=== PATIENT | female | born 1975 | race Caucasian/White ===

== ENCOUNTER → 2018-01-28 15:07 | Outpatient (CLI) | payer MEDICAID, SELFPAY ==
[2018-01-28 17:30] LABS: Absolute Lymphocyte Count 1.89 X10^3/ul (0.83-4.51); Basophil# 0.02 X10^3/uL; Basophil% 0.4 % (0-1); Eosinophil# 0.11 X10^3/uL; Hematocrit 40.9 % (37-47); Hemoglobin 13.3 g/dl (12.0-15.0); Lymphocyte # 1.89 X10^3/ul (4.0); Lymphocyte % 34.7 % (19-41); Mean Corp Hgb Conc 32.5 g/gl (32-36); Mean Corpuscular Hgb 29.8 pg (27.0-32.0); Mean Corpuscular Volume 91.5 fL (81-99); Mean Platelet Vol. 10.4 fl (6.2-12.0); Monocyte# 0.46 X10^3/uL; Monocyte% 8.5 % (0-10); Neutrophil # 2.95 X10^3/uL (2.7-7.7); Neutrophil % 54.2 % (47-70); Platelet Count 262 K/mm3 (150-450); RBC Distribution Width SD 47.3 fl (35.1-43.9); Red Blood Count 4.47 M/mm3 (4.2-5.4); White Blood Count 5.4 K/mm3 (4.4-11.0)
[2018-01-28 17:39] LABS: POSITIVE COUNT NO; POSITIVE DIFFERENTIAL NO; POSITIVE MORPHOLOGY NO
[2018-01-28 17:51] LABS: ALB/GLOB Ratio 1.1 RATIO (0.9-2.4); AST(SGOT) 14 U/L (15-37); Alanine Aminotransfer ALT/SGPT 26 U/L (13-56); Albumin, Serum 3.8 g/dL (3.2-5.0); Alkaline Phosphatase 60 U/L (45-117); Anion Gap 5 (5-15); BUN 8 mg/dL (7-18); BUN/Creat Ratio 10.5 RATIO (10-20); Calcium,Total 8.8 mg/dL (8.5-10.1); Chloride 108 mmol/L (98-107); Cholesterol 175 mg/dL (200); Creatinine, Serum 0.76 mg/dL (0.55-1.02); EST Glomerular Filtration Rate 88 mL/min (>60); Est Glom Filt Rate - Afr Amer 107 mL/min (>60); Globulin 3.4 g/dL (2.2-4.2); Glucose 82 mg/dL (74-106); High Density Lipoprotein 38 mg/dL; Potassium 4.1 mmol/L (3.5-5.1); Protein, Total 7.2 g/dL (6.4-8.2); Sodium Level 141 mmol/L (136-145); T4 Free Direct 1.04 ng/dL (0.76-1.46); Thyroid Stim Hormone (TSH) 1.91 uIU/mL (0.358-3.74); Triglycerides 148 mg/dL; Very Low Density Lipoprotein 30 mg/dL (5-40)
[2018-01-28 18:12] LABS: Microalbumin,Random Urine < 5.0 mg/L (NO RANGE EST.)
[2018-01-31 10:45] LABS: Anti-Thyroglobulin AB < 1.0 IU/mL (0.0-0.9); Thyroglobulin, Serum Qt. 19.3 ng/mL (1.5-38.5); Thyroid Peroxidase AB 16 IU/mL (0-34)
[2020-04-21 10:44] VITALS: BMI 32.0
== END ==
PROVIDERS: Family Provider Family Medicine; PCP Family Medicine; Visit Provider Family Medicine
DX: E03.9 Hypothyroidism, unspecified (principal); F17.200 Nicotine dependence, unspecified, uncomplicated; E66.9 Obesity, unspecified
CPT/HCPCS: 80053; 80061; 82043; 82570; 84432; 84439; 84443; 85025; 86376; 86800

== ENCOUNTER → 2018-02-07 15:15 | Outpatient (CLI) | payer MEDICAID, SELFPAY ==
--- NOTE | 2018-02-07 15:18 | US_ITS ---
STUDY: THYROID ULTRASOUND REASON FOR EXAM: Female, 42 years old. Enlarged thyroid TECHNIQUE: Transverse and longitudinal ultrasound evaluation of the thyroid was performed with real-time and static gerardo-scale imaging. COMPARISON: None. FINDINGS: RIGHT LOBE: The right lobe of the thyroid gland measures 5.3 x 2.1 x 1.5 cm. There is a homogeneous echotexture. There are no demonstrated solid, cystic or complex lesions. LEFT LOBE: The left lobe of the thyroid gland measures 5.0 x 1.3 x 1.7 cm. There is a homogeneous echotexture. There is a cystic mass with minimal internal echoes in the mid pole measuring 5.1 x 4.0 x 2.9 mm. ISTHMUS: The isthmus measures 3.0 mm. The regional lymph nodes are unremarkable. US/Thyroid IMPRESSION: The thyroid is not significantly enlarged on ultrasound. There is a small nodule in the mid pole of the left lobe measuring 5 mm in largest diameter. The appearance is not suspicious, however a follow-up ultrasound of the thyroid can be obtained in six months to document stability. Electronically Signed: Janet Paige MD at 2:01 EDT Tel Direct: [phone], Service support ,
== END ==
PROVIDERS: Family Provider Family Medicine; PCP Family Medicine; Visit Provider Family Medicine
DX: E01.0 Iodine-deficiency related diffuse (endemic) goiter (principal)
CPT/HCPCS: 76536

== ENCOUNTER → 2018-02-14 11:22 | Outpatient (CLI) | payer MEDICAID, SELFPAY ==
[2018-02-19 03:21] LABS: Testosterone, Free 0.47 ng/dL (0.10-0.85); Testosterone, Total 29 ng/dL (8-48)
[2018-02-19 07:52] LABS: Testosterone, % Free 1.63 % (0.50-2.80)
== END ==
PROVIDERS: Family Provider Family Medicine; PCP Family Medicine; Visit Provider Family Medicine
DX: L65.9 Nonscarring hair loss, unspecified (principal)
CPT/HCPCS: 36415; 84402; 84403

== ENCOUNTER 2018-03-09 07:44 | Day surgery (SDC) | payer OTHER, SELFPAY ==
[2018-03-09] VITALS (8 sets, daily range): BP systolic 97–131; BP diastolic 59–89; PULSE 62–93; RESP 14–18; TEMP 35.6–36.8; O2SAT 97–99; BMI 32.0
--- NOTE | 2018-03-09 07:50 | CT_ITS ---
STUDY: CT ABDOMEN AND PELVIS WITHOUT CONTRAST REASON FOR EXAM: Female, 43 years old. Lower pelvic pain radiating to the right lower quadrant RADIATION DOSAGE (If Supplied By Facility): CTDIvol = ( 10.08 ) mGy, DLP = ( 503.56 ) mGycm TECHNIQUE: Transaxial images were obtained from the dome of the diaphragm to the symphysis pubis without oral contrast, and without intravenous contrast. Sagittal and coronal images were reconstructed. Individualized dose optimization techniques were used for this CT. COMPARISON: None. FINDINGS: The visualized lung bases are unremarkable. The visualized portions of the heart are within normal limits. Normal liver. Normal gallbladder and extrahepatic biliary system. Normal spleen. Normal pancreas. Normal bilateral adrenal glands. Normal right kidney. Normal left kidney. Normal visualized stomach. There are nonspecific fluid-filled small bowel loops. There is no evidence of small bowel obstruction. There is mild fecal retention. There are multiple appendicoliths. There is thickening of the appendix with minimal stranding and its proximal aspect best seen on coronal images 56-58. No free fluid is seen. Normal abdominal aorta. Normal inferior vena cava. Normal retroperitoneum. Normal urinary bladder. Normal abdominal wall. There is narrowing of L4-[address]/Abdomen/Pelvis without Cont IMPRESSION: Thickening of the appendix with appendicoliths and minimal stranding proximally consistent with acute appendicitis. N.B. : The above information has been verbally conveyed by Osbaldo Chung MD to Dr. Jan Milton, Covering Physician, on 03/09/2018 09:49:07 (ET). Electronically Signed: Osbaldo Chung MD at 9:46 EDT Tel , Service support ,
--- NOTE | 2018-03-09 07:52 | ED.VISSUMM ---
- ER Visit Summary Date of Service: 03/09/18 Chief Complaint: Abdominal pain History of Present Illness: The patient is a 43 F who presents with abdominal pain. She states it started about 3 hours ago. She describes sharp pains in her epigastric, suprapubic and right lower quadrant areas. This pain does not radiate. She denies any vomiting but has had nausea. No urinary symptoms. Her last bowel movement with this morning. She denies fevers with this. She tried Tums without any relief. She has no history of any abdominal surgeries. Physical Examination: Vital signs reviewed. HEENT exam unremarkable. Heart is regular rate and rhythm without murmurs. Lungs are clear to auscultation. Abdomen is soft tenderness in the epigastric, suprapubic and right lower quadrants. Extremities reveal no edema. Skin exam normal. Neurologic exam normal. Test Results: Laboratory studies are normal except for glucose of 114. Urinalysis without infection. CT of the abdomen and pelvis reveals acute appendicitis with appendicoliths and stranding Emergency Department Course and Treatment: Patient was given morphine and Zofran for pain control. Her CAT scan does reveal acute appendicitis. I discussed this with Dr. Ferguson as the patient has seen him in the past and he is outbound sales consultant today. Patient will be started on IV Zosyn and he will begin to perform appendectomy Treatment Plan: [] Disposition: Admit for surgery Impression: Acute appendicitis This note was generated with Augure dictation software. It may contain incorrect words, spelling, and punctuation that were not noted in review of the chart prior to signing ED Disposition - Plan for ED Patient: Chief Complaint: Abd Pain Referrals: Ar Damon MD [Primary Care Provider] -
[2018-03-09] MEDS: Morphine 4 MG/ML Syringe IV (08:09)
[2018-03-09] MEDS: Ondansetron 4 MG/2 ML Vial IV (08:09)
[2018-03-09 08:17] LABS: Absolute Lymphocyte Count 2.24 X10^3/ul (0.83-4.51); Absolute Neutrophil Count 6.7 X10^3/uL (2.0-7.7); Basophil# 0.04 X10^3/uL; Basophil% 0.4 % (0-1); Eosinophil# 0.15 X10^3/uL; Eosinophils% 1.5 % (0-5); Hematocrit 40.6 % (37-47); Hemoglobin 13.7 g/dl (12.0-15.0); Lymphocyte # 2.24 X10^3/ul (4.0); Lymphocyte % 22.5 % (19-41); Mean Corp Hgb Conc 33.7 g/gl (32-36); Mean Corpuscular Hgb 30.5 pg (27.0-32.0); Mean Corpuscular Volume 90.4 fL (81-99); Monocyte# 0.77 X10^3/uL; Monocyte% 7.7 % (0-10); Neutrophil # 6.74 X10^3/uL (2.7-7.7); Neutrophil % 67.7 % (47-70); Platelet Count 296 K/mm3 (150-450); RBC Distribution Width CV 13.6 % (11.6-14.6); RBC Distribution Width SD 44.9 fl (35.1-43.9); Red Blood Count 4.49 M/mm3 (4.2-5.4)
[2018-03-09 08:18] LABS: POSITIVE COUNT NO; POSITIVE DIFFERENTIAL NO; POSITIVE MORPHOLOGY NO
[2018-03-09 08:28] LABS: ALB/GLOB Ratio 1.1 RATIO (0.9-2.4); AST(SGOT) 15 U/L (15-37); Alanine Aminotransfer ALT/SGPT 33 U/L (13-56); Albumin, Serum 3.9 g/dL (3.2-5.0); Alkaline Phosphatase 59 U/L (45-117); Anion Gap 6 (5-15); BUN 12 mg/dL (7-18); BUN/Creat Ratio 16.2 RATIO (10-20); Calcium,Total 9.2 mg/dL (8.5-10.1); Chloride 105 mmol/L (98-107); Creatinine, Serum 0.74 mg/dL (0.55-1.02); EST Glomerular Filtration Rate 91 mL/min (>60); Est Glom Filt Rate - Afr Amer 110 mL/min (>60); Estimated Creatinine Clearance 84.65 ml/min; Globulin 3.4 g/dL (2.2-4.2); Glucose 114 mg/dL (74-106); Lipase 103 U/L (73-393); Potassium 3.7 mmol/L (3.5-5.1); Protein, Total 7.3 g/dL (6.4-8.2); Sodium Level 137 mmol/L (136-145)
[2018-03-09 08:36] LABS: Bacteria 0 SEEN /hpf (None Seen); Mucous, Urine 0 SEEN /hpf (<or=2+)
[2018-03-09 08:41] LABS: Color, Urine Yellow (Yellow); Glucose, Dipstick Normal (Normal); Leukocyte Esterase-Dipstick 25 /ul (Negative); Nitrite-Dipstick Negative (Negative); Occult Blood-Urine 50 /ul (Negative); Protein-Dipstick 15 mg/dl (Negative); Specific Gravity, Urine 1.025 (1.002-1.030); Urine Bilirubin Dipstick Negative (Negative); Urine Clarity Clear (Clear); Urine Urobilinogen Normal (Normal)
[2018-03-09 08:43] LABS: Ketone-Dipstick 150 mg/dl (Negative)
[2018-03-09 08:45] LABS: Internal QC Validated? YES +Cl - CLEAR BKGD; Pregnancy, Urine Negative Negative
[2018-03-09 08:49] LABS: Red Blood Cells-Urine 0-5 SEEN /hpf (0-5); Squamous Epithelial Cells - UA 0-5 SEEN /hpf (5-10); White Blood Cells 0-5 SEEN /hpf (0-5)
[2018-03-09] MEDS: HYDROmorphone 1 MG/ML Syringe IV (09:55)
[2018-03-09] MEDS: Piperacil/Tazobactam 3.375 GM/50 ML ML IV (10:13)
--- NOTE | 2018-03-09 10:47 | PCM.HP.STD ---
Problem List (1) Appendicitis Status: Acute Qualifiers: Appendicitis type: acute appendicitis Acute appendicitis type: with localized peritonitis Qualified Code(s): K35.3 - Acute appendicitis with localized peritonitis History of Present Illness Date of Admission: 03/09/18 The patient is a 43 year old F who presented to the emergency department with abdominal pain. She states it started about 4:00 in the morning. She describes sharp pains in her epigastric, suprapubic and right lower quadrant areas. This pain does not radiate. She denies any vomiting but has had nausea. No urinary symptoms. Her last bowel movement with this morning. She denies fevers with this. She tried Tums without any relief. She has no history of any abdominal surgeries. Since being in the emergency department her pain is localized to the right lower quadrant. She has had a CAT scan which had shown an appendicolith with stranding in the peritoneal fat. Her laboratories have been normal to date. Past Medical History Medical History: Medical History (Last Reviewed 03/09/18 @ 10:48 by Storm Ferguson MD) Asthma J45.909 Diarrhea R19.7 Hay fever J30.1 child Allergies No Known Allergies Allergy (Verified 03/09/18 07:46) Home Medications: Ambulatory Orders Medication Instructions Recorded Fexofenadine HCl [Micaela Allergy] 60 mg PO DAILY 03/09/18 Montelukast Sodium [Singulair] 10 mg PO DAILY 03/09/18 Triamcinolone Acetonide [Nasacort] 2 spray NASAL DAILY 03/09/18 Surgical History: Surgical History (Last Reviewed 03/09/18 @ 10:48 by Storm Ferguson MD) ankle surgery Smoking Status: Former smoker - *Family History Maternal Family History: Family History (Last Reviewed 12/19/17 @ 14:53 by Jennifer Temple) Mother Colon cancer Diabetes Hypertension Father Hypertension Cancer History Items: No pertinent history Review of Systems Constitutional: Reports: Anorexia HEENT: Denies: Dysphasia, Ear Pain, Eye Pain, Head Aches, Hearing Changes, Sore Throat Cardiovascular: Denies: Chest Pain, Chest Pressure, Chest Tightness, Palpitations Respiratory: Denies: Cough, Hemoptysis, Shortness of breath at rest, Shortness of breath upon exertion, Wheezing Gastrointestinal: Reports: Abdominal Pain, Nausea. Denies: Vomiting Genitourinary: Denies: Dysuria, Frequency, Hematuria, Urgency VTE Information - Inpt Only VTE Present on Admission: No VTE Mechan Device Prophylaxis: SCD's VTE Pharm Prophylaxis ordered?: No Reason prophylaxis not ordered:: Treatment Not Indicated Patient Problems: Active and Suspected Problems (Last Reviewed 12/19/17 @ 14:53 by Jennifer Temple) Appendicitis (Acute) - Physical Exam General: Alert, Oriented x3 Lungs: Clear to auscultation Cardiovascular: Regular rate, Regular Rhythm, No murmurs Abdomen: Bowel Sounds Present, Soft, Non-Distended, Tender - Patient has localized peritonitis positive Rovsing sign voluntary guarding Vital Signs Temp Pulse Resp BP Pulse Ox 96.1 F L 62 14 124/59 H 98 03/09/18 07:44 03/09/18 09:49 03/09/18 09:49 03/09/18 09:49 03/09/18 09:49 Oxygen Delivery Method Room Air Weight: 186 lb 11.704 oz Body Mass Index (BMI) 32.0 Laboratory Tests Past 24 Hrs 03/09/18 03/09/18 03/09/18 07:54 07:54 08:30 WBC 10.0 RBC 4.49 Hgb 13.7 Hct 40.6 MCV 90.4 MCH 30.5 MCHC 33.7 RDW 13.6 RDW Differential 44.9 H Plt Count 296 MPV 10.0 Immature Gran % (Auto) 0.200 Neut % (Auto) 67.7 Lymph % (Auto) 22.5 [place] % (Auto) 7.7 Eos % (Auto) 1.5 Baso % (Auto) 0.4 Absolute Neuts (auto) 6.7 Absolute Lymphs (auto) 2.24 Total Counted Not Reportable Sodium 137 Potassium 3.7 Chloride 105 Carbon Dioxide 26.0 Anion Gap 6 BUN 12 Creatinine 0.74 Estim Creat Clear Calc 84.65 Est GFR (MDRD) Af Amer 110 Est GFR (MDRD) Non-Af 91 BUN/Creatinine Ratio 16.2 Glucose 114 H Calcium 9.2 Total Bilirubin 0.60 AST 15 ALT 33 Alkaline Phosphatase 59 Total Protein 7.3 Albumin 3.9 Globulin 3.4 Albumin/Globulin Ratio 1.1 Lipase 103 Urine Color Urine Clarity Urine pH Ur Specific [place] Urine Protein Urine Glucose (UA) Urine Ketones Urine Occult Blood Urine Nitrite Urine Bilirubin Urine Urobilinogen Ur Leukocyte Esterase Urine RBC Urine WBC Ur Squamous Epith Cells Urine Bacteria Urine Mucus Urine Test Negative 03/09/18 08:30 WBC RBC Hgb Hct MCV MCH MCHC RDW RDW Differential Plt Count MPV Immature Gran % (Auto) Neut % (Auto) Lymph % (Auto) [place] % (Auto) Eos % (Auto) Baso % (Auto) Absolute Neuts (auto) Absolute Lymphs (auto) Total Counted Sodium Potassium Chloride Carbon Dioxide Anion Gap BUN Creatinine Estim Creat Clear Calc Est GFR (MDRD) Af Amer Est GFR (MDRD) Non-Af BUN/Creatinine Ratio Glucose Calcium Total Bilirubin AST ALT Alkaline Phosphatase Total Protein Albumin Globulin Albumin/Globulin Ratio Lipase Urine Color Yellow Urine Clarity Clear Urine pH 5.0 Ur Specific [place] 1.025 Urine Protein 15 H Urine Glucose (UA) Normal Urine Ketones 150 H Urine Occult Blood 50 H Urine Nitrite Negative Urine Bilirubin Negative Urine Urobilinogen Normal Ur Leukocyte Esterase 25 H Urine RBC 0-5 SEEN Urine WBC 0-5 SEEN Ur Squamous Epith Cells 0-5 SEEN Urine Bacteria 0 SEEN Urine Mucus 0 SEEN Urine Test Assessment/Plan All Active Problems (Last Reviewed 12/19/17 @ 14:53 by Jennifer Temple) Appendicitis (Acute) Reactive airway disease (Acute) Sinusitis, acute (Acute) My plan is perform a laparoscopic appendectomy on the patient. Risk and benefits have been reviewed in great detail to include bleeding infection possible recurrent abscesses in the abdomen which may or may not require further surgeries or drainage. Injury to the surrounding structures is also been discussed. All questions asked of been answered and the patient is willing to proceed.
--- NOTE | 2018-03-09 10:50 | PCM.OPRPT ---
Problem List (1) Appendicitis Status: Acute Qualifiers: Appendicitis type: acute appendicitis Acute appendicitis type: with localized peritonitis Qualified Code(s): K35.3 - Acute appendicitis with localized peritonitis Report of Operation Date of Procedure: 03/09/18 Pre-Operative Diagnosis: K35.3 acute appendicitis Post-Operative Diagnosis: Same Surgery/Procedure Performed:: Laparoscopic appendectomy Type of Anesthesia:: General Anesthesiologist: Marielle Sanchez Description of Procedure: Patient was brought into the operating room. Placed in the supine position. Under excellent endotracheal intubation the abdomen was sterilely prepped and draped in the usual fashion. Local was injected infraumbilically. Dissection was carried down to the fascia. The fascia was grasped with a [place]. Varies needle was placed inside the abdomen. The abdomen was insufflated to 15 torr. A 10/12 trocar was placed without difficulty. Patient was placed in the head down and rotated to the left position. Suprapubic #5 trocar was placed the left lower quadrant #5 trocar was placed. Both of these under direct visualization without injury to underlying structures. Patient was noted to have acute appendicitis. It was dilated mesentery to it was thickened I took the mesentery down with the Enseal I had excellent hemostasis I transected the base of the appendix with a 45 linear cutter and placed a specimen in a specimen bag and delivered through the umbilical port without difficulty. I inspected the base irrigated out the pelvis there was no pus in the pelvis and the base looked clean without signs of bleeding. I removed the trochars under direct visualization good hemostasis was noted closed the fascia the umbilical port with a [id number] stitch of 0 Vicryl. Skin incisions were closed with subcuticular stitches of 4-0 Monocryl. Steri-Strips are applied sterile dressings were applied and the patient tolerated the procedure well. Given the fact that she was nonruptured and had a normal white count I have no problem sending her home today. - Admit VTE Documentation VTE Present on Admission: No VTE Mechan Device Prophylaxis: SCD's VTE Pharm Prophylaxis ordered?: No Reason prophylaxis not ordered:: Treatment Not Indicated
--- NOTE | 2018-03-09 10:55 | APP_PTH ---
PATIENT: VENKAT FLOREZ LOC: [facility] U#:[id number] AGE/SX: 43/F ROOM: RE03/09/[address]: Dr. Storm Ferguson MD : 1975 BED: DIS: 03/09/2018 SPEC #: [id number] RECD: 03/11/18 09:23 STATUS: TEE ARELIS #: [id number] MARTIR: 03/09/18 10:[address]: Storm Ferguson DEPT: SURGICAL PATHOLOGY RECD BY: Ja Cardenas ENTERED: 03/11/18 09:45 SP TYPE: APPENDIX OTHR DR: Dr. Ar Damon MD Tissues: Appendix, NOS Procedures: Surgery Specimen Level III HEADER OPERATION: Laparoscopic, appendectomy PRE-OP DIAGNOSIS: Acute appendicitis TISSUE SUBMITTED: Appendix MICROSCOPIC DIAGNOSIS Appendix, appendectomy: Acute appendicitis. Acute serositis. AM:gali 03/12/18 MICROSCOPIC DESCRIPTION Slides are reviewed. GROSS DESCRIPTION Received is one container labeled with the patient's name and designated appendix. The specimen consists of an appendix measuring 5.5 cm in length and up to 1 cm in average diameter. No gross perforations are evident. Serial sections reveal a patent lumen. Typo Machine Operator sections are submitted in one cassette. / AM:gali 03/11/18 TC:2 CPT: 84796
--- NOTE | 2018-03-09 12:05 | DCINST_ITS ---
Discharge Diet: Light diet - advance as tolerated - if you have questions about your diet instructions, please talk to you doctor. Discharge Activity: May Not Drive - for 3-5 days or while taking narcotic pain meds. May shower in (days): 1 Call your doctor if your incision/area has: Continuous Slow Oozing, Sudden Increased Bleeding, Increased Pain/ Swelling, Increased Redness, Foul Smelling Discharge Call your doctor if you observe: Fever of 101 or Higher Suture Line Care: Avoid Pulling/Pushing, Avoid Pinching/Bending Additional Dressing/Incision Instructions:: Keep dressing clean and dry. Change or remove dressing in 2 days. Leave steri strips for 1 week. May protect with a gauze bandaid. Medications to take at Discharge Fexofenadine HCl [Micaela Allergy] 60 mg PO DAILY 03/09/18 Montelukast Sodium [Singulair] 10 mg PO DAILY 03/09/18 Oxycodone HCl/Acetaminophen [Percocet 5/325] 1 - 2 tab PO Q4H PRN PRN 4 Days # 30 tab 03/09/18 Triamcinolone Acetonide [Nasacort] 2 spray NASAL DAILY 03/09/18 Allergies/Adverse Reactions: Allergies No Known Allergies Allergy (Verified 03/09/18 07:46) The following prescriptions were given: Oxycodone HCl/Acetaminophen [Percocet 5/325] 1 - 2 tab PO Q4H PRN PRN 4 Days # 30 tab PRN Reason: Pain Primary Care Physician: Ar Damon MD [Primary Care Provider] - Test Results: Test results from this visit will be discussed in further detail at your follow- up appointment, if applicable. Please Follow Up With: Storm Ferguson MD - [phone] When: Call to make a follow up appointment with your doctor in 1 week.
[2018-03-09] MEDS: Bupivacaine 0.25% 30 ML Vial (12:10)
== END 2018-03-09 13:34 | disposition home or self-care (01) ==
LOC: ED 07:59 → SDC 11:16
PROVIDERS: Emergency Provider Emergency Medicine; Family Provider Family Medicine; PCP Family Medicine; Visit Provider Surgery
PROC: 0DTJ4ZZ Resection of Appendix, Percutaneous Endoscopic Approach (ICD-10-PCS; CPT 44970; principal; 2018-03-09 10:55)
DX: K35.3 Acute appendicitis with localized peritonitis (principal); J30.1 Allergic rhinitis due to pollen; F17.200 Nicotine dependence, unspecified, uncomplicated; Z79.899 Other long term (current) drug therapy
CPT/HCPCS: 44970; 74176; 80053; 81001; 81025; 83690; 85025; 88304; 99282; J7030; A4216; C1760; J2405

== ENCOUNTER → 2018-12-27 | Outpatient (CLI) | payer OTHER, SELFPAY ==
[2018-03-09 11:15] VITALS: BMI 32.0
[2018-12-27 10:09] LABS: Bacteria 0 SEEN /hpf (None Seen); Mucous, Urine 0 SEEN /hpf (<or=2+); Red Blood Cells-Urine 0 SEEN /hpf (0-5); Squamous Epithelial Cells - UA 0 SEEN /hpf (5-10); White Blood Cells 0 SEEN /hpf (0-5)
[2018-12-27 12:41] LABS: Absolute Lymphocyte Count 1.94 X10^3/ul (0.83-4.51); Absolute Neutrophil Count 3.1 X10^3/uL (2.0-7.7); Basophil# 0.03 X10^3/uL; Basophil% 0.5 % (0-1); Color, Urine Yellow (Yellow); Eosinophil# 0.18 X10^3/uL; Eosinophils% 3.2 % (0-5); Glucose, Dipstick Normal (Normal); Hemoglobin 13.8 g/dl (12.0-15.0); Ketone-Dipstick Negative (Negative); Leukocyte Esterase-Dipstick Negative /ul (Negative); Lymphocyte # 1.94 X10^3/ul (4.0); Lymphocyte % 34.1 % (19-41); Mean Corp Hgb Conc 32.9 g/gl (32-36); Mean Corpuscular Hgb 29.7 pg (27.0-32.0); Mean Corpuscular Volume 90.5 fL (81-99); Monocyte# 0.46 X10^3/uL; Monocyte% 8.1 % (0-10); Neutrophil # 3.07 X10^3/uL (2.7-7.7); Neutrophil % 53.9 % (47-70); Nitrite-Dipstick Negative (Negative); Occult Blood-Urine Negative /ul (Negative); Platelet Count 258 K/mm3 (150-450); Protein-Dipstick Negative (Negative); RBC Distribution Width SD 46.1 fl (35.1-43.9); Red Blood Count 4.64 M/mm3 (4.2-5.4); Specific Gravity, Urine 1.005 (1.002-1.030); Urine Bilirubin Dipstick Negative (Negative); Urine Clarity Clear (Clear); Urine Urobilinogen Normal (Normal); White Blood Count 5.7 K/mm3 (4.4-11.0)
[2018-12-27 12:46] LABS: POSITIVE COUNT NO; POSITIVE DIFFERENTIAL NO; POSITIVE MORPHOLOGY NO
[2018-12-27 13:18] LABS: T4 Free Direct 0.92 ng/dL (0.76-1.46); Thyroid Stim Hormone (TSH) 1.64 uIU/mL (0.358-3.74)
== END | disposition home or self-care (01) ==
LOC: MFPLAB 10:06
PROVIDERS: Family Provider Family Medicine; PCP Family Medicine; Referring Provider Family Medicine; Visit Provider Family Medicine
DX: E03.9 Hypothyroidism, unspecified (principal); F17.200 Nicotine dependence, unspecified, uncomplicated
CPT/HCPCS: 36415; 81001; 84439; 84443; 85025

== ENCOUNTER → 2019-01-03 | Outpatient (CLI) | payer OTHER, SELFPAY ==
--- NOTE | 2019-01-03 07:59 | US_ITS ---
HISTORY: F/U NODULES EXAMINATION: US Thyroid (eg thyroid, parathyroid, parotid) TECHNIQUE: Rizvi scale and color doppler imaging was performed of the thyroid gland. COMPARISON: February 07, 2018 FINDINGS: RIGHT THYROID LOBE: Measures 5.1 x 1.7 x 1.8 cm. Homogeneous echotexture with normal vascularity. No thyroid nodules are present. LEFT THYROID LOBE: Measures 4.5 x 1.9 x 1.3 cm. Homogeneous echotexture with normal vascularity. Within the midportion left lobe of the thyroid gland there is a 8 x 4 x 4 mm mixed echotexture nodule. It is mostly hypoechoic relative to the adjacent tissue. It has regular margins. There is an echogenic focus within the margins of the nodule. This echogenic focus is non-shadowing, peripheral, and new. Color Doppler imaging demonstrates flow around the peripheral margins of the lesion, but not within it ISTHMUS: Is 5 mm thick. No thyroid nodules are present. US/Thyroid IMPRESSION: Solitary complex, mostly cystic nodule within the left lobe of the thyroid gland closer to the inferior pole, and laterally. On today's study and measured 8 x 4 x 4 mm. Previously it was 5 x 4 x 3 mm. This is slightly larger on today's study and with potentially new microcalcification... Based on TI-RADS scoring for the sonographic imaging characteristics of the nodule, this lesion is suspicious. FNA should be considered. at 2333 Reported and signed by: Bony Hall MD Electronically Signed: Bony Hall MD at 23:31 EDT Tel , Service support ,
== END | disposition home or self-care (01) ==
LOC: US 07:55
PROVIDERS: Family Provider Family Medicine; PCP Family Medicine; Referring Provider Family Medicine; Visit Provider Family Medicine
DX: E04.1 Nontoxic single thyroid nodule (principal)
CPT/HCPCS: 76536

== ENCOUNTER → 2019-01-14 | Outpatient (CLI) | payer OTHER, SELFPAY ==
[2019-01-14 14:48] VITALS: BMI 32.0
--- NOTE | 2019-01-14 14:50 | LES_PTH ---
PATIENT: VENKAT FLOREZ LOC: [facility] U#:[id number] AGE/SX: 43/F ROOM: RE01/14/[address]: Dr. Storm Ferguson MD : 1975 BED: DIS: 01/14/2019 SPEC #: [id number] RECD: 01/14/19 16:26 STATUS: TEE ARELIS #: [id number] MARTIR: 01/14/19 14:[address]: Storm Ferguson DEPT: SURGICAL PATHOLOGY RECD BY: Ja Cardenas ENTERED: 01/15/19 11:17 SP TYPE: Lesion OTHR DR: Dr. Ar Damon MD Tissues: Skin of back, NOS Procedures: Surgery Specimen Level IV HEADER OPERATION: Punch biopsy of back skin lesion PRE-OP DIAGNOSIS: Neoplasm of uncertain behavior of skin TISSUE SUBMITTED: Back skin lesion, punch biopsy MICROSCOPIC DIAGNOSIS Skin lesion of back, punch biopsy: Seborrheic keratosis, mildly inflamed. AM:gali 01/16/19 MICROSCOPIC DESCRIPTION Slides are reviewed. GROSS DESCRIPTION Received in fixative is one container labeled with the patient's name and designated back punch biopsy. The specimen consists of a single cylindrical fragment of brown tissue measuring 1 cm in length and 0.2 cm in diameter. The specimen is totally submitted in one cassette. / AM:gali 01/15/19 TC:5 CPT: 64025
== END | disposition home or self-care (01) ==
LOC: LABSPEC 16:58
PROVIDERS: Family Provider Family Medicine; PCP Family Medicine; Referring Provider Surgery; Visit Provider Surgery
DX: D48.5 Neoplasm of uncertain behavior of skin (principal)
CPT/HCPCS: 88305

== ENCOUNTER → 2020-04-21 | Outpatient (CLI) | payer MEDICAID, SELFPAY ==
--- NOTE | 2020-04-21 | EMB_PTH ---
PATIENT: VENKAT FLOREZ LOC: [facility] U#:[id number] AGE/SX: 45/F ROOM: RE04/21/[address]: CLAY Meng : 1975 BED: DIS: 04/21/2020 SPEC #: [id number] RECD: 04/21/20 15:06 STATUS: TEE ARELIS #: [id number] MARTIR: 04/21/20 00:[address]: Mar Kearney NP DEPT: SURGICAL PATHOLOGY RECD BY: Christian Muse ENTERED: 04/22/20 07:56 SP TYPE: ENDOM BX/C FARIBA DR: Dr. Ar Damon MD Tissues: Endometrium, NOS Procedures: Surgery Specimen Level IV HEADER OPERATION: Endometrial biopsy PRE-OP DIAGNOSIS: Abnormal uterine bleeding TISSUE SUBMITTED: Endometrial biopsy MICROSCOPIC DIAGNOSIS Endometrial biopsy: Secretory endometrium. TAVO:gali 04/23/20 MICROSCOPIC DESCRIPTION Slides are reviewed. GROSS DESCRIPTION Received is one container labeled with the patient's name and not further designated. The specimen consists of multiple fragments of hemorrhagic soft tissue that in aggregate measure 2.5 x 2 x 0.1 cm. The specimen is totally submitted in one cassette. / SJ:gali 04/22/20 TC:4 CPT: [id number]
[2020-04-21 10:44] VITALS: BMI 32.0
[2020-04-24 20:07] LABS: Chlamydia By Nucleic Acid AMP Negative (Negative)
[2020-04-24 20:51] LABS: Gonococcus By Nucleic Acid AMP Negative (Negative)
[2020-04-27 15:09] LABS: HPV APTIMA, High Risk Negative (Negative)
== END | disposition home or self-care (01) ==
PROVIDERS: PCP Family Medicine; Referring Provider Nurse Practitioner Women's Health; Visit Provider Nurse Practitioner Women's Health
DX: N93.9 Abnormal uterine and vaginal bleeding, unspecified (principal); Z12.4 Encounter for screening for malignant neoplasm of cervix; Z11.3 Encounter for screening for infections with a predominantly sexual mode of transmission
CPT/HCPCS: 87491; 87591; 87624; 88175; 88305; G0145

== ENCOUNTER → 2020-05-18 | Outpatient (CLI) | payer MEDICAID, SELFPAY ==
[2020-04-21 10:44] VITALS: BMI 32.0
--- NOTE | 2020-05-18 10:53 | US_ITS ---
HISTORY: MENORRHAGIA COMPARISON: CT abdomen and pelvis 03/09/2018 TECHNIQUE: Real-time transabdominal and transvaginal (transvaginal sonography performed for better visualization of pelvic contents) sonographic imaging of the pelvis was performed. # of images incl. paperwork: 69 FINDINGS: UTERUS: Uterus measures 7.1 x 3.6 x 4.7cm. There is a posterior fundal intramural myoma measuring 1.1 x 0.7 x 0.9 cm. There is a fundal intramural myoma measuring 0.8 x 0.7 x 0.7 cm near the fundal aspect of the endometrial cavity.. ENDOMETRIUM: Endometrium measures 4mm in thickness. No endometrial fluid. OVARIES: The ovaries are normal in size with physiologic follicles.Right ovary measures 2.8 x 1.7 x 1.9 cm. Left ovary measures 3.7 x 1.9 x 2.7 cm.{Doppler color flow is seen to bilateral ovaries.FDoppler color flow with normal arterial and venous waveforms are seen within bilateral ovaries.} ADNEXA: No adnexal mass or abnormality. FREE FLUID: No free fluid in the pelvic cul-de-sac. US/Pelvic (Non ) IMPRESSION: 1. Intramural myoma 0.8 x 0.7 x 0.7 cm near the fundal aspect of the endometrial cavity without distortion of the endometrial stripe. 2. Posterior fundal intramural 1.1 x 0.7 x 0.9 cm myoma. at 1901 Reported and signed by: Demond Colmenares MD Electronically Signed: Demond Colmenares MD at 19:00 EDT Tel , Service support ,
--- NOTE | 2020-05-18 10:53 | US_ITS ---
HISTORY: MENORRHAGIA COMPARISON: CT abdomen and pelvis 03/09/2018 TECHNIQUE: Real-time transabdominal and transvaginal (transvaginal sonography performed for better visualization of pelvic contents) sonographic imaging of the pelvis was performed. # of images incl. paperwork: 69 FINDINGS: UTERUS: Uterus measures 7.1 x 3.6 x 4.7cm. There is a posterior fundal intramural myoma measuring 1.1 x 0.7 x 0.9 cm. There is a fundal intramural myoma measuring 0.8 x 0.7 x 0.7 cm near the fundal aspect of the endometrial cavity.. ENDOMETRIUM: Endometrium measures 4mm in thickness. No endometrial fluid. OVARIES: The ovaries are normal in size with physiologic follicles.Right ovary measures 2.8 x 1.7 x 1.9 cm. Left ovary measures 3.7 x 1.9 x 2.7 cm.{Doppler color flow is seen to bilateral ovaries.FDoppler color flow with normal arterial and venous waveforms are seen within bilateral ovaries.} ADNEXA: No adnexal mass or abnormality. FREE FLUID: No free fluid in the pelvic cul-de-sac. US/Transvaginal Non- IMPRESSION: 1. Intramural myoma 0.8 x 0.7 x 0.7 cm near the fundal aspect of the endometrial cavity without distortion of the endometrial stripe. 2. Posterior fundal intramural 1.1 x 0.7 x 0.9 cm myoma. at 1901 Reported and signed by: Demond Colmenares MD Electronically Signed: Demond Colmenares MD at 19:00 EDT Tel , Service support ,
--- NOTE | 2020-05-18 10:53 | BI_ITS ---
MAMMOGRAPHY - BILATERAL SCREENING REASON FOR EXAM: Female, 45 years old. Routine annual screening examination. PERTINENT HISTORY: Non-contributory. TECHNIQUE: Digital bilateral breast michelle (3D mammographic acquisition) in the CC and MLO projections. 2-D mediolateral oblique (MLO) and craniocaudad (CC) views of both breasts were obtained. CAD: Full Field Digital Mammography with Computer Added Detection was performed. COMPARISON: None. Baseline examination. FINDINGS: Breast Composition: There are scattered areas of fibroglandular density. There are no dominant masses or suspicious calcifications. Small bilateral benign-appearing axillary lymph nodes. No other significant abnormalities are identified. BI/SCREEN MAMM (CAD) W/MICHELLE BILAT IMPRESSION: Negative screening mammogram. Yearly followup mammogram recommended. (A) ASSESSMENT CATEGORY: BIRADS Category 2: Benign. A letter regarding these results will be sent to the patient by the facility within 30 days. Approximately 10% of breast cancers are not detected by mammography. A normal mammogram should not delay biopsy of a clinically suspicious abnormality. [id number] Electronically Signed: Avtar Godinez, at 14:09 EDT , Service support ,
== END | disposition home or self-care (01) ==
LOC: OPUS 10:53
PROVIDERS: PCP Family Medicine; Referring Provider Nurse Practitioner Women's Health; Visit Provider Nurse Practitioner Women's Health
DX: N92.1 Excessive and frequent menstruation with irregular cycle (principal); Z12.31 Encounter for screening mammogram for malignant neoplasm of breast
CPT/HCPCS: 76830; 76856; 77063; 77067

== ENCOUNTER 2021-06-04 15:48 | Emergency (ER) | payer MEDICAID, SELFPAY ==
[2021-06-04 15:49] VITALS: BP 136/80; PULSE 106; RESP 16; TEMP 36.4; O2SAT 98; BMI 35.4
--- NOTE | 2021-06-04 16:04 | CT_ITS ---
EXAM: CT CERVICAL SPINE WITHOUT INTRAVENOUS CONTRAST CLINICAL INDICATION: PT GOT HIT ON TOP OF HEAD WITH A TREE BRANCH TECHNIQUE: Helically acquired images were obtained of the cervical spine without intravenous contrast. 2D reformatted images were reviewed. This CT exam was performed using one or more of the following dose reduction techniques: automated exposure control, adjustment of the mA and/or kV according to patient size, and/or use of iterative reconstruction technique. This report was created using [employer] report generation technology. COMPARISON: None. FINDINGS: VERTEBRAE: Anterior spondylolisthesis at C5, C6 and C7. No fracture. No discrete lytic or blastic abnormality. Normal craniocervical junction and cervicothoracic junction. DISCS/SPINAL CANAL/NEURAL FORAMINA: Disc space narrowing at C5-C6 and C6-C7. No critical canal stenosis. Right C6-C7 foraminal narrowing due to uncovertebral hypertrophy. SOFT TISSUES: Unremarkable. No prevertebral soft tissue swelling. LYMPH NODES: Unremarkable. No cervical adenopathy. LUNG APICES: Unremarkable as visualized. Clear. CT/Spine Cervical without Contras IMPRESSION: No acute findings in the cervical spine. Electronically Signed: Jefferson Cao MD (Brooks) at 16:40 EDT , Service support ,
--- NOTE | 2021-06-04 16:04 | CT_ITS ---
STUDY: CT BRAIN WITHOUT CONTRAST REASON FOR EXAM: Female, 46 years old. PT GOT HIT ON HEAD WITH A TREE BRANCH RADIATION DOSAGE (If Supplied By Facility): CTDIvol = ( 44.99 ) mGy, DLP = ( 745.49 ) mGycm TECHNIQUE: Transaxial CT imaging of the brain was performed without administration of intravenous contrast material. Individualized dose optimization techniques were used for this CT. COMPARISON: No relevant priors. FINDINGS: Normal soft tissue structures. Normal calvarium. Normal size ventricles and extra-axial spaces for the patient''s age. Normal white matter tracts of the cerebral hemispheres. Normal basal ganglia and thalami. Normal brainstem. Normal cerebellum. There is no intracranial hemorrhage. There are no findings of an acute ischemic infarction. Normal visualized paranasal sinuses. CT/Brain/Head without Contrast IMPRESSION: Normal unenhanced CT scan of the brain. Electronically Signed: Jefferson Cao MD (Brooks) at 16:27 EDT , Service support ,
--- NOTE | 2021-06-04 16:06 | EX.ED.GENINJ ---
HPI History of Present Illness Chief Complaint: Head Injury Informant: patient and spouse/S.O. Onset/Context/Timing Onset: Today and Hours Quality of Pain: Sharp Current Severity: Mild Maximum Severity: Mild Associated Symptoms Associated Symptoms: Negative for Parasthesias, Weakness, Loss of function, Inability to ambulate, Loss of consciousness and Amnesia Narrative Narrative: 46-year-old female history of asthma. Was working the yard today and a large tree branch her states it is about 10 feet long and 3 inches wide fell out of a tree and hit her in the head. She was not knocked out but she was knocked down. She has had a headache and just has not felt right since then. She is on no blood thinners. She also is having mild neck discomfort. Denies any other injuries. This occurred several hours ago. Prior similar symptoms: No Recent Illness/Hospitalization: No [facility] Medical History (Updated 06/04/21 @ 16:[address] Fuentes Campos MD) Asthma child Diarrhea Hay fever Multinodular goiter Home Medications albuterol sulfate 90 mcg/actuation aerosol inhaler 2 puff INHALATION Q6H PRN 01/08/19 [History Last Taken Unknown] cetirizine 10 mg tablet 10 mg PO DAILY 01/08/19 [History Last Taken Unknown] fluconazole 200 mg tablet 200 mg PO DAILY #1 tab 06/17/20 [Rx Last Taken Unknown] Allergy/AdvReac Type Severity Reaction Status Date / Time No Known Allergies Allergy Verified 06/17/20 09:20 Family History Mother Colon cancer Diabetes Hypertension Father Hypertension Cancer Son Brain tumor Surgical History ankle surgery history leep procedure History of laparoscopic appendectomy Social History adopted: No household members: significant other and children number of children: 1 current occupational status: unemployed history of recent travel: No sexually active: Yes Smoking Status: Current every day smoker tobacco type: cigarettes alcohol intake: current alcohol intake frequency: a few times a month substance use type: does not use diet: vegetarian what type of physical activity do you participate in: none seatbelt use: always do you feel safe at home: Yes additional social history: Elizabeth - Bill Mccullough ROS ROS ED ROS Narrative Denies. Review of Systems ROS Unobtainable: Denies due to encephalopathy Constitutional Constitutional ED: Denies fever(s) Eyes Eyes: Denies change in vision ENT ENT ED: Denies ear pain Cardiovascular Cardiovascular: Denies chest pain Respiratory/Chest Respiratory/Chest: Denies dyspnea Gastrointestinal Gastrointestinal: Denies abdominal pain Genitourinary Genitourinary ED: Denies dysuria Musculoskeletal Musculoskeletal: Denies myalgias Integumentary Denies rash Neurologic Neurologic: Reports headache(s) Psychiatric Psychiatric: Denies depression Endocrine Endocrinology: Denies polyuria Hematologic/Lymphatic Hematologic/Lymphatic: Denies easy bruising Allergic/Immunologic Allergic/Immunologic ED: Denies urticaria EXAM Physical Exam Narrative Exam Narrative: Middle-aged female no acute distress vital signs stable afebrile. HEENT exam pupils round reactive light his motions are intact. Anterior aspect of her scalp and forehead is mild to no tenderness. There is a small contusion. No laceration. C-spine there is diffuse tenderness over her neck both bony and paracervical. Trachea midline. Lungs clear to auscultation bilaterally. Heart regular rhythm no murmur. Chest wall nontender. Extremities moves all 4. Neurovascular intact. Nontender. 5 out of 5 caving guide strength. Dorsi plantarflexion intact. Back nontender. Neurologically she is awake and alert with no focal motor deficits. She knows day, month, year and president. GCS of 15. Const Vital Signs: 06/04/21 15:49 06/04/21 15:54 Temperature 97.5 F L Temperature Source Temporal Pulse Rate 106 H Respiratory Rate 16 Respiratory Effort Normal Non-Labored Respiratory Depth Normal Respiratory Pattern Normal Blood Pressure 136/80 H Blood Pressure Mean 98 Pulse Ox 98 Oxygen Delivery Method Room Air Room Air Positive well nourished and well developed; Negative for obese, cachectic, contractures or unkempt General Appearance ED: well developed and NAD; Negative for unkempt, cachectic or contractures Nutritional Appearance: Negative for cachectic or obese HEENT trauma and tenderness Eyes PERRL and EOMs intact bilaterally Neck full ROM General: Negative for tenderness Chest Wall inspection of chest normal and palpation of chest normal Resp normal respiratory effort and clear to auscultation bilaterally Auscultation: Negative for rales, rhonchi, wheezes or diminished lung sounds Cardio regular rhythm, S1 normal heart sound, S2 normal heart sound and no murmurs Rate: regular rate GI normal to inspection, nondistended, normoactive bowel sounds, non-tender, non-distended and no masses Inspection: Negative for abdominal distention Auscultation: normoactive bowel sounds Palpation: soft; Negative for tender, guarding or rebound tenderness present Rectal Exam: Negative for visual inspection normal Back/Spine normal to inspection and no thoracic nor lumbar tenderness General Back: Negative for CVA tenderness Thoracic Spine / Upper Back: Negative for thoracic spinal tenderness Extremity normal to inspection and full ROM General Extremety ED: Negative for deformity, edema or tenderness General Extremity: Negative for deformity or edema Neuro oriented x3, moves all extremities and no focal motor deficits [place] Coma Scale: document GCS findings Spontaneous Obeys Commands Oriented 15 Sensorium / Orientation: alert, oriented to person, oriented to place and oriented to time; Negative for orientation impaired, lethargic or stuporous Motor Exam: strength 5/5 throughout Psych mental status grossly normal and thought process normal Appearance: Negative for unkempt Skin no rashes or lesions noted, no wounds and No no jaundice MDM MDM MDM Narrative Medical decision making narrative: 46-year-old with head injury. Due to the mechanism of injury and her complaints a CAT scan of her head and neck are being obtained. Repeat exam at 4:55 PM patient doing well. Exam unchanged. Neurologic exam normal. We discussed her normal CAT scan results of her brain and C-spine. Patient be discharged home with head injury instructions. Discharge Plan Triage Chief Complaint: Head Injury ED Provider: Fuentes Campos Dx/Rx/DC Orders Clinical Impression: Closed head injury, Neck strain Instructions: ED Concussion Prescriptions: No Action albuterol sulfate 90 mcg/actuation HFA aerosol inhaler 2 puff INHALATION Q6H PRNRF: 0 cetirizine [Zyrtec] 10 mg tablet 10 mg PO DAILY RF: 0 fluconazole [Diflucan] 200 mg tablet 200 mg PO DAILY Qty: 1 RF: 0 Primary Care Provider: Yaritza Johnson Referrals: Yaritza Johnson MD [Primary Care Provider] - 1 Week if not improving Activity Restrictions/Additional Instructions: Ice to your forehead and scalp. Tylenol and Motrin for pain Follow-up with your doctor if not improving. Disposition Disposition: Home, Self Care Discharge Date/Time: 06/04/21 17:00
[2021-06-04 16:59] VITALS: PULSE 88; RESP 16; O2SAT 97
== END 2021-06-04 17:00 | disposition home or self-care (01) ==
LOC: ED 16:24
PROVIDERS: Emergency Provider Emergency Medicine; PCP Internal Medicine
DX: S16.1XXA Strain of muscle, fascia and tendon at neck level, initial encounter (principal); S00.93XA Contusion of unspecified part of head, initial encounter; J45.909 Unspecified asthma, uncomplicated; F17.210 Nicotine dependence, cigarettes, uncomplicated; Z79.51 Long term (current) use of inhaled steroids; W20.8XXA Other cause of strike by thrown, projected or falling object, initial encounter; Y93.89 Activity, other specified; Y92.007 Garden or yard of unspecified non-institutional (private) residence as the place of occurrence of the external cause; Y99.8 Other external cause status
CPT/HCPCS: 70450; 72125; 99282

== ENCOUNTER 2025-06-19 05:54 | Day surgery (SDC) | payer MEDICAID, SELFPAY ==
--- NOTE | 2025-06-10 13:20 | PCM.HP.BLA ---
History and Physical Date of Admission: 06/19/25 Expand All Collapse AllPre-Op History and Physical HPI: The patient is a 50 year old female presenting for discussion regarding PMB and EMB results pre-operative visit.She is scheduled for Hysteroscopy D&C, for PMB, endometrial crowding on EMBon 06/19/25. Procedure discussed along with risks, benefits and complications. Otheralternatives discussed for management. Consent form signed? Yes. PAST MEDICAL HISTORYPAST MEDICAL HISTORYDiagnosisDate•Abnormal glandular Papanicolaou smear of cervix •Asthma (HCC) •Class 1 obesity due to excess calories with body mass index (BMI) of 34.0 to 34.9 in adult •Depression •Family history of malignant neoplasm of gastrointestinal tract •Hypothyroidism •Rqgyxdgej81/27/2023•Migraine without aura and without status migrainosus, not intractable •Multiple thyroid nodules TIRADs 3. no further imaging needed.•Sciatica of right side •Seasonal allergies •Tobacco use disorder stop date 08/2022•Uterine fibroid PAST SURGICAL HISTORYPAST SURGICAL HISTORYProcedureLateralityDate•ANKLE SURGERY RROzec5208/06/2013•APPENDECTOMY •CERVIX UTERI CONIZA LP ELCTRO EXCI age 18•COLONOSCOPY FLX DX W/COLLJ SPEC WHEN PFRMD 12/16/2007•COLONOSCOPY FLX DX W/COLLJ SPEC WHEN PFRMD 05/03/2015 Repeat 2019•COLONOSCOPY SCREENING 08/27/2023 next colonoscopy due in 5 years•SKIN BIOPSY HX CURRENT MEDICATIONSCurrent Outpatient MedicationsMedicationSigDispenseRefill•montelukast (SINGULAIR) 10 mg tabletTake 1 tablet by mouth daily at bedtime.90 tablet1•albuterol HFA (VENTOLIN HFA) 90 mcg/actuation inhalerInhale 2 puffs as instructed every 4 hours as needed for wheezing/shortness of breath.18 g2•SUMAtriptan (IMITREX) 100 mg tabletTake 1 tablet by mouth as needed for migraine headache (see administration instructions). May repeat dose after 2 hours if needed. Maximum daily dose is 200 mg per day.9 tablet5•topiramate (TOPAMAX) 25 mg tabletTake 1 tablet by mouth two times a day. Patient should start on May 16, 2025.180 tablet1•buPROPion SR (WELLBUTRIN SR) 150 mg 12 hr tabletTake 1 tablet by mouth two times a day. Patient should start on May 16, 2025.180 tablet1•ondansetron orally disintegrating (ZOFRAN ODT) 4 mg disintegrating tabletTake 1 tablet by mouth every 6 hours as needed for nausea/vomiting.20 tablet0•estradiol (CLIMARA) 0.05 mg/24 hr patchApply 1 Patch as directed one time a week.12 Patch3•progesterone micronized (PROMETRIUM) 100 mg capsuleTake 1 capsule by mouth daily at bedtime.90 capsule3•fexofenadine (AIDAN ALLERGY) 180 mg tabletTake 180 mg by mouth once daily. •Multivitamin capsuleTake 1 capsule by mouth once daily. No current facility-administered medications for this visit. ALLERGIES: Gabapentin and Grass Pollen-January ([facility] [employer]) Grass, Std PERSONAL HISTORY: [SOCIAL HISTORY] [SOCIAL HISTORY]Social HistoryTobacco Use•Smoking status:Former Current packs/day:0.00 Average packs/day:1 pack/day for 30.0 years (30.0 ttl pk-yrs) Types:Cigarettes Start date:08/1992 Quit date:08/2022 Years since quittin.8•Smokeless tobacco:Never•Tobacco comments: Patient quit smoking and occasionally vapes- Quit August 2022Vaping Use•Vaping status:Some Days•Substances:Nicotine, Flavoring•Devices:DisposableSubstance Use Topics•Alcohol use:Yes Comment: 2-3 MONTH•Drug use:Not Currently Types:Marijuana Comment: In high school FAMILY HISTORY: FAMILY HISTORYFAMILY HISTORY ProblemRelationAge of Onset•Colon [id number]•DiabetesMother •HypertensionMother •ObesityMother •HypertensionFather •CancerFather Lung•ObesityFather •HypertensionBrother •Lung CancerMaternal Grandmother •ObesityMaternal Grandfather •No Known ProblemsPaternal Grandmother •ObesityPaternal Grandfather •other (Charly tumor)Son REVIEW OF SYMPTOMS:negative except as noted above PHYSICAL EXAMINATION: VITALS: Blood pressure 124/68, weight 84.4 kg (186 lb), last menstrual period 04/03/2025. GENERAL: The patient is well nourished, well hydrated in no acute distress. , The patient is oriented to time, place, and person.NECK: full range of motion LUNGS: Clear to auscultation bilaterally. no wheezes, rhonchi or ralesHEART: Regular rate and rhythm, Normal heart sounds, and No murmurs or gallops IMPRESSION: 50yo with PMB, focal crowding on EMB PLAN: Hysteroscopy, D&C Pt has been counseled on risks/benefits and alternatives of surgery including but not limited to anesthesia, bleeding, infection, uterine perforation with subsequent injury to pelvic structures including bowel, bladder, ureters and vessels. Pt wishes to proceed with surgery at this time. I have reviewed and updated past medical and surgical history, medications and allergies Ashanti Porras MD
[2025-06-19] VITALS (8 sets, daily range): BP systolic 104–123; BP diastolic 64–76; PULSE 65–88; RESP 16; TEMP 36.6; O2SAT 96–100; BMI 32.8
[2025-06-19] MEDS: Lactated Ringers 1,000 ML 15 ML IV (06:21)
--- NOTE | 2025-06-19 06:32 | PRE.ANES_ITS ---
ASA Classification* ASA Classification ASA Classification: 2 Assessment & Plan Anesthesia* Anesthesia Assessment Anesthesia Assessment: Discussed sedation and/or anesthesia options, risks, benefits, and alternatives with patient/parents/legal guardian/POA. Questions invited. The patient/parents/legal guardian/POA seems to understand and agrees to proceed with anesthesia plan. Reviewed the physical assessment, medical history, allergy history and patient home medications list prior to surgery/procedure/anesthetic and documented any changes. Performed airway and anesthesia risk assessments. Anesthesia Type Anesthesia Type: MAC History Source History Obtained from:: Patient and Chart Anesthesia Focused Assessment* Temperature: 97.9 F Pulse Rate: 80 Blood Pressure: 104/64 Respiratory Rate: 16 Pulse Ox: 99 Oxygen Delivery Method: Room Air Airway Assessment Mouth opens: >3 cm Mallampati Score: IV Teeth Condition: Caps/Crowns (Patient has a crown on a left lower molar. It is tight. Rest the teeth are tight.) Neck Range of motion (ROM): Full ROM Labs Anesthesia Preop lab: CBC WBC, (4.4-11.0) 5.7 K/mm3 12/27/18, 10:08 RBC, (4.2-5.4) 4.64 M/mm3 12/27/18, 10:08 Hgb, (12.0-15.0) 13.8 g/dl 12/27/18, 10:08 Hct, (37-47) 42.0 % 12/27/18, 10:08 Plt Count, (150-450) 258 K/mm3 12/27/18, 10:08 CHEMISTRY Potassium, (3.5-5.1) 3.7 mmol/L 03/09/18, 07:54 Sodium, (136-145) 137 mmol/L 03/09/18, 07:54 BUN, (7-18) 12 mg/dL 03/09/18, 07:54 Creatinine, (0.55-1.02) 0.74 mg/dL 03/09/18, 07:54 Glucose, (74-106) 114 mg/dL H 03/09/18, 07:54 TSH, (0.358-3.74) 1.64 uIU/mL 12/27/18, 10:08 COAG Urine Test Negative Negative 03/09/18, 08:30 Pre-Assessment Diagnosis/Proposed Procedure Planned Operative Procedure(s): Hysteroscopy,D&C Symphion Anesthesia History 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 When Was Last Pacemaker Check QUESTION #4 FULL TEXT: You/Your Family Experience fever (hyperthermia) with Anesthesia Last Oral Intake Last Oral intake: Last Oral Intake NPO since 05:00 06/19/25 06:23 Meds taken in AM with sips of No 06/19/25 06:23 water? 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: PONV - garbage pick up man Female Yes 06/12/25 09:26 HX of Motion Sickness No 06/12/25 09:26 HX of N/V After Surgery No 06/12/25 09:26 Non-Smoker Yes 06/12/25 09:26 Duration of Surgery greater No 06/12/25 09:26 than 60 minutes Number of Risk Factors 2 06/12/25 09:26 PONV Score Moderate Risk 06/12/25 09:26 Height & Weight Height & Weight: Anesthesia: Height & Weight Height 5 ft 3 in 06/19/25 06:23 Weight: 84 kg 06/19/25 06:23 Body Mass Index (BMI) 32.8 06/19/25 06:23 Respiratory Assessment Respiratory Assessment - garbage pick up man: Respiratory Tract Infection Hx - garbage pick up man Hx Respiratory Tract Infection No 06/12/25 09:26 STOP Sleep Apnea STOP Sleep Apnea - garbage pick up man: STOP Sleep Apnea - garbage pick up man Hx Hypertension No 06/12/25 09:26 Hx Sleep Apnea No 06/12/25 09:26 CPAP BIPAP Do you snore loudly (louder No 06/12/25 09:26 than talking or can be heard Do you often feel tired/ No 06/12/25 09:26 fatigued/ sleepy during daytime? Has anyone observed you stop No 06/12/25 09:26 breathing during sleep? STOP Results Negative 06/12/25 09:26 QUESTION #5 FULL TEXT : Do you snore loudly (louder than talking or can be heard through closed doors)? 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 Specify any problems Hx of Preganancy in last 3 No 06/12/25 09:26 Months Nurse Filling Out Transfusion MIGUELITO 06/12/25 09:26 & Questions: Date: 06/12/25 06/12/25 09:26 Time: :29 06/12/25 09:26 Patient unable to answer at this time (ie. confused, unrespo /Reproduction History /Reproductive History - garbage pick up man: /Reproductive Hx- garbage pick up man Hx Now No 06/12/25 09:26 Gestational Age (in weeks): EDC: Hx Hx Para Hx Section SAB No 06/12/25 09:26 Does the father of the baby or his family experience fever w Father of the baby Malignant Hypertension history comment Active Medications Active Medications: Current Medications Generic Name Dose Route Start Last Admin Trade Name Freq PRN Reason Stop Dose Admin Lactated Ringer's 1,000 mls @ 15 mls/hr 06/19/25 06:15 06/19/25 06:21 IV 15 mls/hr .Q48H NORMA Administration PFSH Medical History Wears glasses Depression Former smoker Acute bronchitis, unspecified Multinodular goiter child Diarrhea Asthma Hay fever Home Medications Medication Instructions Recorded Last Taken Type albuterol sulfate 90 mcg/actuation 2 puff inhalation Q 6H PRN 01/08/19 Unknown History aerosol inhaler shortness of breath or wheez ing cetirizine 10 mg tablet (Zyrtec) 10 mg PO DAILY Unknown History bupropion HCl 150 mg tablet,12 hr 150 mg PO BID Unknown History sustained-release estradiol 0.05 mg/24 hr weekly 1 patch transdermal QWE EK 06/12/25 Unknown History transdermal patch montelukast 10 mg tablet 10 mg PO QHS 06/12/25 Unknow n History ondansetron 4 mg disintegrating 4 mg PO Q6H PRN PRN na usea/vomiting 06/12/25 Unknown History tablet progesterone micronized 100 mg 100 mg PO QHS 06/12/25 Unknown History capsule topiramate 25 mg tablet 25 mg PO BID 06/12/25 Unknow n History Allergy/AdvReac Type Severity Reaction Status Date / Time gabapentin AdvReac Intermediate Nausea/Vom/ Verified 06/19/25 06:19 Diarrhea Family History Mother Colon cancer Diabetes Hypertension Father Hypertension Cancer Son Brain tumor Surgical History Hx of colonoscopy history leep procedure History of laparoscopic appendectomy ankle surgery Social History adopted: No household members: significant other and children number of children: 1 current occupational status: unemployed history of recent travel: No sexually active: Yes Smoking Status: Current every day smoker tobacco type: cigarettes alcohol intake: current alcohol intake frequency: a few times a month substance use type: does not use diet: vegetarian what type of physical activity do you participate in: none seatbelt use: always do you feel safe at home: Yes additional social history: Elizabeth Mccullough Review of Systems (Anesthesia) ROS Narrative System reviewed and no additional complaints, except as documented.
[2025-06-19] MEDS: Midazolam 2 MG/2 ML Syringe IV (07:21)
[2025-06-19] MEDS: Lidocaine 1% (5 ml sdv) 5 ML Vial 8 ML IV (07:26)
--- NOTE | 2025-06-19 07:30 | EMB_PTH ---
PATIENT: VENKAT FLOREZ LOC: [facility] [place] U#:[id number] AGE/SX: 50/F ROOM: RE06/19/[address]: Dr. Ashanti Valentin, MDDOB: 1975 BED: DIS: 06/19/2025 SPEC #: [id number] RECD: 06/19/25 07:58 STATUS: TEE ARELIS #: [id number] MARTIR: 06/19/25 07:[address]: Ashanti Valentin DEPT: SURGICAL PATHOLOGY RECD BY: Rafael Walters ENTERED: 06/19/25 09:22 SP TYPE: ENDOM BX/C ANAHIHR DR: Dr. Armond Khan MD Tissues: A - Endometrium, NOS Procedures: Surgery Specimen Level IV HEADER OPERATION: Hysteroscopy, D&C PRE-OP DIAGNOSIS: Post menopausal bleeding, endometrial crowding on EMB TISSUE SUBMITTED: A- Endometrial curettings MICROSCOPIC DIAGNOSIS A. Endometrium, curettage: * Inactive endometrium with areas of stromal breakdown MICROSCOPIC DESCRIPTION Slides are reviewed. GROSS DESCRIPTION A. Received in formalin labeled with the patient's name and date of . Designated as " endometrial curettings" is a 2.4 x 1.5 x 0.3 cm aggregate of brown-pink irregular tissue fragments and clotted blood. Entirely submitted in 1 cassette. [place] 06/19/2025 CPT:25839
--- NOTE | 2025-06-19 07:43 | PCM.OPRPT ---
Operative Report (Standard) Operative Information Date of Procedure: 06/19/25 Pre-Operative Diagnosis: PMB, focal crowding on Endometrial biopsy Post-Operative Diagnosis: same Surgery/Procedure Performed: Hysteroscopy, D&C with symphion sports agent: Yes Actuarial Consultant: [email or web address] [email or web address] Tasks completed by periodontal assistant: Retracting Type of Anesthesia: MAC RN Documented Start/Stop Times: Operation Date: 06/19/25 07:30 Case Time Into Pre-Op 06/19/25 06:04 Out of Pre-Op 06/19/25 07:18 Anesthesia Start 06/19/25 07:21 Into Room 06/19/25 07:21 Procedure Start 06/19/25 07:34 Procedure End 06/19/25 07:42 Procedure Start Time: 07:34 Procedure Stop Time: 07:42 Select all DRAINS/GRAFTS/IMPLANTS that apply: None Estimated Blood Loss: <5 Fluids Replaced: 700 Specimen collected: Yes Description of specimen(s) removed: endometrial curettings Description of surgery: Informed consent was obtained the patient was taken the operating room she was placed in supine position. She was given anesthesia. She was then placed in the [facility] where she was prepped and draped in the normal sterile fashion. bladder drained prior to start of procedure. At this time the weighted speculum was placed in the posterior fornix of vagina. Single-tooth tenaculum was used to gently grasp the anterior lip the cervix. At this time the uterine cavity was sounded to approximately 7 cm. Gentle dilatation was performed once adequate dilatation of the cervix was achieved the hysteroscope using normal saline as a distention medium was placed. Tubal ostia visualized. cavity was narrow- no well circumscribed submucoal fibroid noted-no other masses noted. endometrium appeared atrophic. Symphion resecting device used to obtain endometrial curettings. Tissue will be sent to pathology for evaluation. Tenaculum removed. Good hemostasis. Instrument, lap count correct x 2. Vaginal Sweep was negative. Surgical Findings: tubal ostia visualized. no masses. Complications Complications: No Admit VTE Documentation VTE Present on Admission: Yes VTE Mechan Device Prophylaxis: SCD's VTE Pharm Prophylaxis ordered?: No Reason prophylaxis not ordered: Treatment Not Indicated
--- NOTE | 2025-06-19 07:48 | PCM.DC ---
Discharge Instructions DC O2, CPAP, BIPAP needs Home O2 Discharge instructions: No Dressing / Incision May resume sexual activity in: 1 week Dressing / Incision Call your doctor if you observe: Fever of 101 or Higher, Inability to urinate, Using more than 1 pad per hour and Uncontrolled pain Follow Up Care Please Follow Up With: Ashanti Valentin MD When: I will call you with pathology results in 1-2 weeks, if you feel you need an appointment please call [phone] Test Results: Test results from this visit will be discussed in further detail at your follow-up appointment, if applicable. Discharge Plan Admission Attending Provider: Ashanti Valentin Primary Care Provider: Armond Khan Instructions Print Language: Panamanian Discharge Orders/Prescriptions Prescriptions: No Action albuterol sulfate 90 mcg/actuation HFA aerosol inhaler 2 puff INHALATION Q6H PRN (Reason: shortness of breath or wheezing) cetirizine [Zyrtec] 10 mg tablet 10 mg PO DAILY bupropion HCl 150 mg tablet sustained-release 12 hr 150 mg PO BID estradiol 0.05 mg/24 hr patch weekly 1 patch transdermal QWEEK topiramate 25 mg tablet 25 mg PO BID montelukast 10 mg tablet 10 mg PO QHS ondansetron 4 mg tablet,disintegrating 4 mg PO Q6H PRN PRN (Reason: nausea/vomiting) progesterone micronized 100 mg capsule 100 mg PO QHS Referrals / Follow Up: Armond Khan MD [Primary Care Provider, Family Practice] Disposition Disposition (needs filled in before D/C Order can be placed): Home, Self Care
--- NOTE | 2025-06-19 07:54 | PCM.POST.ANE ---
Anesthesia: Postop Eval I Current Vital Signs Temperature: 97.8 F Pulse Rate: 88 Blood Pressure: 113/72 Respiratory Rate: 16 Pulse Ox: 96 Assessment Airway patent: Yes Spontaneous unlabored respirations: Yes nausea: No Vomiting: No Anesthesia Complication: No Fluid Hydration Crystalloid volume administer (ml): 700 Total IV fluid infused: 700 Progress Note Anesthesia document: Postop Eval 1 completed: Yes
--- NOTE | 2025-06-19 09:22 | POSTOPAN2_ITS ---
Anesthesia Postop Eval I Sum Postop Eval Completion status Anesthesia document: Postop Eval 1 completed: Yes Anesthesia Postop Eval I Summary Anesthesia Postop Eval I Summary: Anesthesia Postop Eval I: Assessment Summary Airway patent Yes 06/19/25 07:54 BEAM BUILDER [email or web address] Spontaneous unlabored Yes 06/19/25 07:54 BEAM BUILDER [email or web address].[email or web address] respirations Mental status nausea No 06/19/25 07:54 BEAM BUILDER [email or web address] Vomiting No 06/19/25 07:54 BEAM BUILDER [email or web address] Anesthesia Postop Eval I: Fluid Summary Crystalloid volume administer 700 06/19/25 07:54 BEAM BUILDER [email or web address].[email or web address] (ml) Colloids volume administered ( ml) Blood Product volume administered (ml) Total IV fluid infused 700 06/19/25 07:54 BEAM BUILDER [email or web address] Anesthesia Postop Eval I: Summary Notes Anesthesia Complication No 06/19/25 07:54 BEAM BUILDER [email or web address] Anesthesia Complication Comment: Post-operative progress note Anesthesia: Postop Eval II Evaluation Mental status: Awake Pain Level: 1 nausea: No Vomiting: No
--- NOTE | 2025-06-19 09:22 | PCM.POSTANE2 ---
Anesthesia Postop Eval I Sum Postop Eval Completion status Anesthesia document: Postop Eval 1 completed: Yes Anesthesia Postop Eval I Summary Anesthesia Postop Eval I Summary: Anesthesia Postop Eval I: Assessment Summary Airway patent Yes 06/19/25 07:54 COUNTER CLERK TRACTOR [email or web address] Spontaneous unlabored Yes 06/19/25 07:54 COUNTER CLERK TRACTOR [employer]S.[email or web address] respirations Mental status nausea No 06/19/25 07:54 COUNTER CLERK TRACTOR [employer]S.[email or web address] Vomiting No 06/19/25 07:54 COUNTER CLERK TRACTOR [employer]S.[email or web address] Anesthesia Postop Eval I: Fluid Summary Crystalloid volume administer 700 06/19/25 07:54 COUNTER CLERK TRACTOR PARTS.TNES (ml) Colloids volume administered ( ml) Blood Product volume administered (ml) Total IV fluid infused 700 06/19/25 07:54 COUNTER CLERK TRACTOR [email or web address] Anesthesia Postop Eval I: Summary Notes Anesthesia Complication No 06/19/25 07:54 COUNTER CLERK TRACTOR PARTS.[email or web address] Anesthesia Complication Comment: Post-operative progress note Anesthesia: Postop Eval II Evaluation Mental status: Awake Pain Level: 1 nausea: No Vomiting: No
== END 2025-06-19 08:39 | disposition home or self-care (01) ==
LOC: SDC 05:58 → AC 05:59
PROVIDERS: PCP Family Medicine; Referring Provider Obstetrics & Gynecology; Visit Provider Obstetrics & Gynecology
DX: N95.0 Postmenopausal bleeding (principal); N85.8 Other specified noninflammatory disorders of uterus; F32.A Depression, unspecified; J45.909 Unspecified asthma, uncomplicated; Z79.899 Other long term (current) drug therapy; F17.210 Nicotine dependence, cigarettes, uncomplicated
CPT/HCPCS: 58558; 00952; 88305; J2405